=== PATIENT | female | born 1985 | race African-American/Black ===

== ENCOUNTER 2025-04-30 08:07 | Day surgery (SDC) | payer OTHER, SELFPAY ==
--- OUTSIDE RECORDS SUMMARY | 2025-04-10 13:44 | XMS_ITS | Clinical Summary ---
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 12/03/2013 Active budesonide-formo terol (SYMBICORT) 160-4.5 mcg/actuation inhaler Inhale 2 puffs into the lungs. 12/15/2015 Active cetirizine (ZYRTEC) 10 MG tablet Take 10 mg by mouth. 12/15/2015 Active Active Problems No known active problems Social History Tobacco Use Types Packs/Day Years Used Date Smoking Tobacco: Never Smokeless Tobacco: Never Alcohol Use Standard Drinks/Week Comments No 0 (1 standard drink = 0.6 oz pur e alcohol) Education Answer Date Recorded Are you interested in more education? Not on brandi e 12/10/2022 Are you concerned about learning? Not on file 12/10/2022 No 12/10/2022 No 12/10/2022 Digital Access Answer Date Recorded No 01/01/2023 No 01/01/2023 No 01/01/2023 Reliable internet access at home? Not on file 01/01/2023 Device with a working camera? Not on file Comments Unknown Sex and Gender Information Value Date Recorded Sex Assigned at Not on file Legal Sex Female 5:33 PM EST Gender Identity Not on file Sexual Orientation Not on file Plan of Treatment Health Maintenance Due Date Last Done Comments DEPRESSION SCREENING 1995 HEPATITIS C SCREENING 2001 HIV ONE-TIME SCREENING (18-6 5 YEARS) 2001 PAP SMEAR 2004 SMOKING STATUS SCREENING (On ce After 26 Yrs) 2009 MAMMOGRAM 2023 COVID-19 VACCINE (3 - 2023-2 5 season) 2024 12/21/2020, 11/30/2020 Adult Td,Tdap Booster 12/12/2028 12/12/2018 PNEUMOCOCCAL VACCINES (0-49 years) Aged Out 05/29/2016 No longer eligible b ased on patient's age to complete this topic HEPATITIS A VACCINES Aged Out No long er eligible based on patient's age to complete this topic HIB VACCINES Aged Out No longer eligi ble based on patient's age to complete this topic MENINGOCOCCAL VACCINES (ACWY) Aged Out No longer eligible based on patient's age to complete this topic MENINGOCOCCAL VACCINES (B) Aged Out N o longer eligible based on patient's age to complete this topic Medical Devices Not on file Insurance [employer] HE[employer] ACO Additional Source Comments The information contained in this document represents components of the legal health record. It is not the complete legal health record.[facility]
--- OUTSIDE RECORDS SUMMARY | 2025-04-10 13:44 | XMS_ITS | Clinical Summary ---
Author Organization 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 Role Phone Dalton Feliz Primary Care Provider [phone] Social History Tobacco Use Types Packs/Day Years Used Date Smoking Tobacco: Never Assessed Comments Unknown Sex and Gender Information Value Date Recorded Sex Assigned at Not on file Legal Sex Female 1:18 AM EST Gender Identity Not on file Sexual Orientation Not on file Plan of Treatment Health Maintenance Due Date Last Done Comments Breast Cancer Screening 1983 Cervical Cancer Screening: Pap Smear 2004 Pneumococcal Vaccine: Pediatrics (0 to 5 Years) and At-Risk Patients (6 to 49 Years) (2 of 2 - PCV) 05/29/2017 05/29/2016 HIV Screening 07/10/2022 Social Influencers of Health Screening 07/10/2022 Depression Screening 08/07/2024 Hypertension/CHF/CAD Annual BMP Blood Test 04/03/2025 04/03/2024 COVID-19 Vaccine ( season) 2025 12/20/2023, 09/21/2022, 08/20/2021, Additional history exists Influenza Vaccine (#1) 2025 , 05/12/2022, 08/20/2021, Additional history exists Cholesterol Screening (Lipid Panel) 04/03/2029 04/03/2024, 04/03/2024, 12/20/2023, Additional history exists DTaP,Tdap,and Td Vaccines (4 - Td or Tdap) 04/07/2033 04/07/2023, 12/12/2018, 07/22/2013 Hepatitis C Screening Completed 11/09/2020 Hepatitis B Vaccines Completed 07/27/2023, 09/21/19 23 HIB Vaccines Aged Out No longer eligi ble based on patient's age to complete this topic HPV Vaccines Aged Out No longer eligi ble based on patient's age to complete this topic Hepatitis A Vaccines Aged Out No long er eligible based on patient's age to complete this topic IPV Vaccines Aged Out No longer eligi ble based on patient's age to complete this topic MMR Vaccines Aged Out No longer eligi ble based on patient's age to complete this topic Meningococcal ACWY Vaccine Aged Out N o longer eligible based on patient's age to complete this topic Meningococcal B Vaccine Aged Out No l onger eligible based on patient's age to complete this topic RSV Immunization Patients Under 20 months Aged Out No longer eligible based on patient's age to complete this topic Varicella Vaccines Aged Out No longer eligible based on patient's age to complete this topic Insurance [facility] MEDICAID Care Teams Drafter Heating And Ventilating Relationship Specialty Start Date End Date Dalton Feliz PA [address] [place] [address] PCP - General 08/01/24
[2025-04-25 11:20] VITALS: BMI 37.4
[2025-04-25 11:21] VITALS: BMI 37.4
[2025-04-30] VITALS (10 sets, daily range): BP systolic 123–150; BP diastolic 72–100; PULSE 72–96; RESP 12–20; TEMP 36.7–37.1; O2SAT 98–100; BMI 37.2
[2025-04-30 10:12] LABS: UPreg QC Valid YES
[2025-04-30 10:43] LABS: Glucose, Whole Blood 104 mg/dL (60-115)
[2025-04-30] MEDS: Lactated Ringers 1,000 ML 100 ML IVCONT (10:47)
--- NOTE | 2025-04-30 12:20 | HO.ANESPROP2 ---
Documented by User: Trinh Chong NP 04/28/25 14:52 HPI - Anesthesia Eval Consult details Narrative: 39yo F for LEFT Lateral Rectus Eye Muscle Recession,LEFT Medial Rectus Resection PMFSH Past Medical History Medical History (Updated 04/30/25 @ 10:05 by Raisa Perry RN) Sinus tachycardia Learning disability Impairment of comprehension Severe obesity Prediabetes Anxiety Blind left eye Allergic rhinitis Asthma Sleep apnea SOB (shortness of breath) Hx of retinal detachment Surgical History Surgical History (Updated 04/30/25 @ 10:13 by Raisa Perry RN) History of lung surgery History of strabismus surgery Hx of detached retina repair Hx of section Social History Social History Patient Tobacco Use Status: Never used Tobacco Use of substances other than those prescribed or required for medical reasons: No Are you DNR?: No Advance Directives: No Advance Directives Information Provided: Yes Advance Directives on File: No : No Poor oral hygiene: No Meds Allergies Allergy/AdvReac Type Severity Reaction Status Date / Time aspirin Allergy Severe Hives Verified 04/30/25 10:08 bismuth subsalicylate Allergy Severe Vomiting Verified 04/30/25 10:08 doxycycline Allergy Severe Anaphylaxis Verified 04/30/25 10:07 montelukast Allergy Severe Hives Verified 04/30/25 10:08 oxycodone (From Percocet) Allergy Severe Hives Verified 04/30/25 10:08 prednisone Allergy Intermediate Nose Bleed Verified 04/30/25 10:08 Home Medications ?Medication ?Instructions ?Recorded ?Confirmed ?Last Taken ?Type albuterol sulfate 2.5 mg/3 mL 2.5 mg continuous nebulization 04/25/25 04/25/25 Unknown History (0.083 %) solution for nebulization DIRECTED albuterol sulfate 90 mcg/actuation 2 puff inhalation QID PRN wheezing 04/25/25 04/25/25 Unknown History aerosol inhaler (Ventolin HFA) benzoyl peroxide 5 % topical 1 appl topical BID 04/25/25 04/25/25 Unknown History cleanser (BP Wash) diltiazem HCl 180 mg capsule,24 180 mg PO DAILY 04/25/25 04/25/25 Unknown History hr,extended release ipratropium 0.5 mg-albuterol 3 mg 3 ml inhalation QID PRN Shortness 04/25/25 04/25/25 Unknown History (2.5 mg base)/3 mL nebulization Of Breath Or Wheezing soln loratadine 10 mg tablet 10 mg PO DAILY PRN allergies 04/25/25 04/25/25 Unknown History melatonin 3 mg tablet 6 mg PO QPM 04/25/25 04/25/25 Unknown History metformin 500 mg tablet 500 mg PO QAM 04/25/25 04/25/25 Unknown History vitamin-ferrous sulfate 1 tab PO DAILY 04/25/25 04/25/25 Unknown History 27 mg iron-folic acid 0.8 mg tablet tiotropium bromide 1.25 2 puff inhalation DAILY 04/25/25 04/25/25 Unknown History mcg/actuation mist for inhalation (Spiriva Respimat) topiramate 100 mg tablet 100 mg PO BEDTIME 04/25/25 04/25/25 Unknown History urea 40 % topical cream 1 appl topical DAILY 04/25/25 04/25/25 Unknown History Exam Height,Weight and Vital Signs: Height 4 ft 8 in Weight 75.75 kg Assessment and Plan Assessment Anesthesia Assessment: Chart Reviewed Documented by User: Ale Murphy DO 04/30/25 12:21 PMFSH Past Medical History Medical History (Updated 04/30/25 @ 10:05 by Raisa Perry RN) Sinus tachycardia Learning disability Impairment of comprehension Severe obesity Prediabetes Anxiety Blind left eye Allergic rhinitis Asthma Sleep apnea SOB (shortness of breath) Hx of retinal detachment Family History Family history of problems with anesthesia: No Surgical History Surgical History (Updated 04/30/25 @ 10:13 by Raisa Perry RN) History of lung surgery History of strabismus surgery Hx of detached retina repair Hx of section History of Problems with Anesthesia: No Social History Social History Patient Tobacco Use Status: Never used Tobacco Use of substances other than those prescribed or required for medical reasons: No Are you DNR?: No Advance Directives: No Advance Directives Information Provided: Yes Advance Directives on File: No : No Poor oral hygiene: No Meds Allergies Allergy/AdvReac Type Severity Reaction Status Date / Time aspirin Allergy Severe Hives Verified 04/30/25 10:08 bismuth subsalicylate Allergy Severe Vomiting Verified 04/30/25 10:08 doxycycline Allergy Severe Anaphylaxis Verified 04/30/25 10:07 montelukast Allergy Severe Hives Verified 04/30/25 10:08 oxycodone (From Percocet) Allergy Severe Hives Verified 04/30/25 10:08 prednisone Allergy Intermediate Nose Bleed Verified 04/30/25 10:08 Home Medications ?Medication ?Instructions ?Recorded ?Confirmed ?Last Taken ?Type albuterol sulfate 2.5 mg/3 mL 2.5 mg continuous nebulization 04/25/25 04/25/25 Unknown History (0.083 %) solution for nebulization DIRECTED albuterol sulfate 90 mcg/actuation 2 puff inhalation QID PRN wheezing 04/25/25 04/25/25 Unknown History aerosol inhaler (Ventolin HFA) benzoyl peroxide 5 % topical 1 appl topical BID 04/25/25 04/25/25 Unknown History cleanser (BP Wash) diltiazem HCl 180 mg capsule,24 180 mg PO DAILY 04/25/25 04/25/25 Unknown History hr,extended release ipratropium 0.5 mg-albuterol 3 mg 3 ml inhalation QID PRN Shortness 04/25/25 04/25/25 Unknown History (2.5 mg base)/3 mL nebulization Of Breath Or Wheezing soln loratadine 10 mg tablet 10 mg PO DAILY PRN allergies 04/25/25 04/25/25 Unknown History melatonin 3 mg tablet 6 mg PO QPM 04/25/25 04/25/25 Unknown History metformin 500 mg tablet 500 mg PO QAM 04/25/25 04/25/25 Unknown History vitamin-ferrous sulfate 1 tab PO DAILY 04/25/25 04/25/25 Unknown History 27 mg iron-folic acid 0.8 mg tablet tiotropium bromide 1.25 2 puff inhalation DAILY 04/25/25 04/25/25 Unknown History mcg/actuation mist for inhalation (Spiriva Respimat) topiramate 100 mg tablet 100 mg PO BEDTIME 04/25/25 04/25/25 Unknown History urea 40 % topical cream 1 appl topical DAILY 04/25/25 04/25/25 Unknown History Exam Exam Date and Time: 04/30/25 1220 Height,Weight and Vital Signs: Height 4 ft 8 in Weight 75.75 kg Vital Signs Temperature 98.1 F 04/30/25 10:32 Pulse Rate 72 04/30/25 10:32 Respiratory Rate 16 04/30/25 10:32 Blood Pressure 134/76 04/30/25 10:32 Pulse Oximetry 99 04/30/25 10:32 Oxygen Delivery Method Room Air 04/30/25 10:32 Temperature 98.1 F 04/30/25 10:32 Pulse Rate 72 04/30/25 10:32 Respiratory Rate 16 04/30/25 10:32 Blood Pressure 134/76 04/30/25 10:32 Pulse Oximetry 99 04/30/25 10:32 Oxygen Delivery Method Room Air 04/30/25 10:32 Airway Mallampati Class: I TM Dist: <=3cm Neck ROM: Full Partial: Upper and Lower Heart: S1S2 Lungs: CTAB Assessment and Plan Assessment Anesthesia Assessment: Anesthesia Plan Discussed and Chart Reviewed Final Anesthetic Review Family History of Problems with Anesthesia: No History of Problems with Anesthesia: No NPO: Yes ASA Class: II Final Preanesthetic Review: No Changes in Pt Med Stat, Meds/Allgs Chart Reviewed, Consent Obtained/Reviewed and Anes Risks/Benef Reviewed Patient Risk: Low Procedure Risk: Low Anesthetic Plan Anesthetic Plan: GA and Agree w/ Assess. and Plan Disposition: Standard PACU
[2025-04-30] MEDS: Albuterol/Iprat 2.5/0.5MG 3 ML AMPUL.NEB INHALE (13:44)
--- NOTE | 2025-04-30 14:24 | HO.OPHTHAL ---
Ophthalmology Operative Note Date of Service: 04/30/25 Narrative: Diagnosis a left esotropia. Postoperative diagnosis same. Procedures 1. Recession of left medial rectus from 8-12 mm behind the surgical limbus. 2. Resection of left lateral rectus [address] Diamond. Anesthesia general. Complications none. The patient was brought to the operating room placed under general anesthesia. The left eye was prepped and draped in the usual sterile ophthalmic fashion. A lid speculum was placed in the eye and a peritomy was created around the medial rectus. The medial rectus was hooked and found to be approximately 8 mm behind the surgical limbus. It was dissected free of its surrounding scar tissue and secured with a double-armed Vicryl suture. The muscle was disinserted from the globe and moved to position 12 mm behind the surgical limbus. Conjunctiva was closed with interrupted Vicryl sutures. A peritomy was then created around the lateral rectus muscle. The lateral rectus was hooked and secured with a muscle clamp. The overlying fascial attachments were dissected free. A mm resection was marked off with cautery and secured with a double-armed Vicryl suture. The distal muscle was resected and the resection point drawn forward to the original insertion. Conjunctiva was closed with interrupted Vicryl sutures. The patient was then awoken from general anesthesia and discharged to postoperative recovery in good condition.
== END 2025-04-30 15:16 | disposition home or self-care (01) ==
PROVIDERS: Nurse Practitioner; PCP Physician Assistant Medical; Visit Provider Ophthalmology
PROC: (CPT 67312; principal; 2025-04-30 12:50)
DX: H50.042 Monocular esotropia with other noncomitancies, left eye (principal); H54.62 Unqualified visual loss, left eye, normal vision right eye; R73.03 Prediabetes; J45.50 Severe persistent asthma, uncomplicated; G47.33 Obstructive sleep apnea (adult) (pediatric); F81.9 Developmental disorder of scholastic skills, unspecified; R41.841 Cognitive communication deficit; Z79.51 Long term (current) use of inhaled steroids; Z79.84 Long term (current) use of oral hypoglycemic drugs; Z79.899 Other long term (current) drug therapy; Z88.5 Allergy status to narcotic agent; Z88.6 Allergy status to analgesic agent; Z88.8 Allergy status to other drugs, medicaments and biological substances; Z98.890 Other specified postprocedural states
CPT/HCPCS: 67312; 81025; 82947; J1100; J1596; J2003; J2405; J2704; J3010